=== PATIENT | female | born 1945 | race Caucasian/White ===

== ENCOUNTER 2016-07-17 07:57 | Day surgery (SDC) | payer MEDICARE ==
[2016-07-17] MEDS ORDERED: ALPRAZolam 0.25 MG TAB PO ONE (08:23)
[2016-07-17 08:31] VITALS: TEMP 98.1
[2016-07-17 09:03] LABS: Mean Platelet Volume 6.8
[2016-07-17 09:10] LABS: INR 1.1 (<1.1); Prothrombin Time 10.8 sec (9.0-12.0)
[2016-07-17 10:09] VITALS: BP 121/73; PULSE 77; RESP 22
--- NOTE | 2016-07-17 10:19 | XR ---
EXAMINATION TYPE: XR chest 1V DATE OF EXAM: 07/17/2016 10:13 AM COMPARISON: NONE HISTORY: Postthoracentesis TECHNIQUE: Single frontal view of the chest is obtained. FINDINGS: There is no sizable pneumothorax. Tiny residual left pleural effusion seen. Small right-si ded pleural effusion. Linear irregular density right apex stable. Arthropathy of the shoulders and postsurgical change involving the right axilla. IMPRESSION: 1. No pneumothorax post procedure.
--- NOTE | 2016-07-17 14:03 | US ---
EXAMINATION TYPE: US thoracentesis DATE OF EXAM: 07/17/2016 10:05 AM COMPARISON: NONE HISTORY: Pleural effusion. FINDINGS: Maximal barrier technique was utilized. The skin overlying a suitable pocket of fluid was localized and the overlying skin prepped and draped. Lidocaine was used for local anesthesia. Ultras ound was used with sterile technique. A 5 Czech catheter over a guide needle was advanced into the pleural fluid collection using ultrasound guidance and the catheter advanced, needle removed. Approx imately 1 liter(s) of serous fluid was removed. Catheter was withdrawn and hemostasis achieved. The re is no immediate complication. The patient discharged in stable condition without complication. IMPRESSION: STATUS POST ULTRASOUND GUIDED THORACENTESIS, POST PROCEDURE CHEST X-RAY PENDING. THIS [place] OCEDURE WAS PERFORMED BY THE UNDERSIGNED.
== END 2016-07-17 10:35 | disposition home or self-care (01) ==
LOC: RADPROMAIN 07:57
PROVIDERS: ATTEND Internal Medicine Hematology & Oncology
DX: J90 Pleural effusion, not elsewhere classified (principal)
CPT/HCPCS: 32555; 71010; 85049; 85610

== ENCOUNTER 2016-07-25 09:50 | Day surgery (SDC) | payer MEDICARE ==
[2016-07-25 10:41] LABS: Mean Platelet Volume 7.2
[2016-07-25 10:42] LABS: Prothrombin Time 10.3 sec (9.0-12.0)
[2016-07-25 11:02] VITALS: RESP 18
--- NOTE | 2016-07-25 12:26 | XR ---
EXAMINATION TYPE: XR chest 1V portable DATE OF EXAM: 07/25/2016 12:21 PM COMPARISON: Prior chest x-ray July 2016 HISTORY: Pleural effusion, status post thoracentesis TECHNIQUE: Single frontal view of the chest is obtained. FINDINGS: There is improvement in patient's right-sided pleural effusion. Some increasing pleural fl uid noted on the left. No evident pneumothorax. No other significant interval change. IMPRESSION: No evident complication status post right thoracentesis.
[2016-07-25 12:27] VITALS: BP 112/65; PULSE 97
--- NOTE | 2016-07-25 13:12 | US ---
EXAMINATION TYPE: US thoracentesis DATE OF EXAM: 07/25/2016 12:14 PM HISTORY: Pleural effusion. FINDINGS: Maximal barrier technique was utilized. The skin overlying a suitable pocket of fluid was localized and the overlying skin prepped and draped. Lidocaine was used for local anesthesia. Ultras ound was used with sterile technique. A 5 Bulgarian catheter over a guide needle was advanced into the pleural fluid collection using ultrasound guidance and the catheter advanced, needle removed. Approx imately 1.125 liter(s) of serous fluid was removed. Catheter was withdrawn and hemostasis achieved. There is no immediate complication. The patient discharged in stable condition without complication . IMPRESSION: STATUS POST ULTRASOUND GUIDED THORACENTESIS, POST PROCEDURE CHEST X-RAY PENDING. THIS [place] OCEDURE WAS PERFORMED BY THE UNDERSIGNED.
== END 2016-07-25 12:30 | disposition home or self-care (01) ==
LOC: RADPROMAIN 09:50
PROVIDERS: ATTEND Internal Medicine Hematology & Oncology
DX: J90 Pleural effusion, not elsewhere classified (principal)
CPT/HCPCS: 32555; 36415; 71010; 85049; 85610

== ENCOUNTER 2016-08-08 08:47 | Day surgery (SDC) | payer MEDICARE ==
[2016-08-08 09:15] VITALS: TEMP 98
[2016-08-08 09:31] LABS: INR 1.1 (<1.1); Prothrombin Time 10.9 sec (9.0-12.0)
--- NOTE | 2016-08-08 10:45 | XR ---
EXAMINATION TYPE: XR chest 1V DATE OF EXAM: 08/08/2016 10:40 AM COMPARISON: NONE INDICATION: Postthoracentesis TECHNIQUE: Single frontal view of the chest is obtained. FINDINGS: Heart size is indistinct. There is a small left pleural effusion. Some infiltrate is adjacent which c ould related atelectasis. Developing pneumonia is not excluded. Findings may have some improvement fr om prior study. There is chronic scarring in the right lateral apex. Surgical clips in the right axillary region. Sma ll right pleural effusion is present. The pulmonary vasculature is normal. IMPRESSION: 1. Small left and minimal right pleural effusion. 2. Improving left lower lobe infiltrate. Follow-up can be performed as clinically indicated.
[2016-08-08 11:04] VITALS: BP 121/71; PULSE 70; RESP 16
[2016-08-08 11:31] LABS: Anisocytosis Slight; Basophils # (A) 0.1 k/uL (0-0.2); Basophils % (A) 3 %; CH 33.2; CHCM 33.7; Eosinophils # (A) 0.1 k/uL (0-0.7); Eosinophils % (A) 2 %; HCT 33.4 % (34.0-46.0); Luc # (Auto) 0.08; Luc % (Auto) 4; Lymphocytes # (A) 0.6 k/uL (1.0-4.8); Lymphocytes % (A) 27 %; MCH 32.5 pg (25.0-35.0); MCHC 32.8 g/dL (31.0-37.0); Macrocytosis Moderate; Mean Platelet Volume 8.3; Monocytes # (A) 0.1 k/uL (0-1.0); Monocytes % (A) 5 %; Neutrophils # (A) 1.3 k/uL (1.3-7.7); Neutrophils % (A) 59 %; RBC 3.38 m/uL (3.80-5.40); RDW 18.9 % (11.5-15.5); WBC 2.3 k/uL (3.8-10.6); WBC (Perox) 2.27
--- NOTE | 2016-08-08 11:59 | US ---
EXAMINATION TYPE: US thoracentesis DATE OF EXAM: 08/08/2016 10:36 AM COMPARISON: NONE HISTORY: Pleural effusion. FINDINGS: Maximal barrier technique was utilized. The skin overlying a suitable pocket of fluid was localized and the overlying skin prepped and draped. Lidocaine was used for local anesthesia. Ultras ound was used with sterile technique. A 5 [place] catheter over guide needle was advanced into the pl eural fluid collection using ultrasound guidance and the catheter advanced,. Approximately 1.2 liter (s) of serous fluid was removed. Catheter was withdrawn and hemostasis achieved. There is no immedi ate complication. The patient discharged in stable condition without complication. IMPRESSION: STATUS POST ULTRASOUND GUIDED THORACENTESIS, POST PROCEDURE CHEST X-RAY PENDING. THIS [place] OCEDURE WAS PERFORMED BY THE UNDERSIGNED.
== END 2016-08-08 11:00 | disposition home or self-care (01) ==
LOC: RADPROMAIN 08:47
PROVIDERS: ATTEND Internal Medicine Hematology & Oncology
DX: J90 Pleural effusion, not elsewhere classified (principal)
CPT/HCPCS: 32555; 36415; 71010; 85025; 85049; 85610

== ENCOUNTER 2016-08-14 07:50 | Day surgery (SDC) | payer MEDICARE ==
[2016-08-14 08:46] VITALS: RESP 14; TEMP 97.6
[2016-08-14 08:54] LABS: Anisocytosis Slight; Basophils % (A) 2 %; CH 33.8; CHCM 33.4; Eosinophils % (A) 2 %; HCT 34.8 % (34.0-46.0); HGB 11.5 gm/dL (11.4-16.0); INR 1.1 (<1.1); Luc # (Auto) 0.05; Luc % (Auto) 3; Lymphocytes # (A) 0.6 k/uL (1.0-4.8); Lymphocytes % (A) 32 %; MCH 33.4 pg (25.0-35.0); MCHC 32.9 g/dL (31.0-37.0); MCV 101.6 fL (80.0-100.0); Macrocytosis Moderate; Mean Platelet Volume 7.5; Monocytes # (A) 0.1 k/uL (0-1.0); Monocytes % (A) 5 %; Neutrophils % (A) 57 %; Prothrombin Time 10.6 sec (9.0-12.0); RBC 3.43 m/uL (3.80-5.40); RDW 18.3 % (11.5-15.5); WBC (Perox) 1.98
[2016-08-14 08:56] LABS: WBC 1.8 k/uL (3.8-10.6)
[2016-08-14 09:46] VITALS: BP 119/62; PULSE 63
--- NOTE | 2016-08-14 10:04 | XR ---
EXAMINATION TYPE: XR chest 1V DATE OF EXAM: 08/14/2016 9:55 AM COMPARISON: Chest x-ray August 08, 2016 HISTORY: Left lung thoracentesis TECHNIQUE: Single frontal view of the chest is obtained. FINDINGS: Underlying emphysematous changes redemonstrated. Improved aeration left lung base is seen after left-sided thoracentesis. There is persistent small right pleural effusion. There is persistent right apical scarring. The cardiac silhouette size is better evaluated and enlarged. The osseous s tructures are demineralized. Right axillary surgical clips are redemonstrated. IMPRESSION: No evidence of sizable pneumothorax after left-sided thoracentesis. There is chronic emp hysematous change and cardiomegaly with persistent small right greater than left pleural effusions an d patchy left basilar atelectasis now present.
--- NOTE | 2016-08-14 10:32 | US ---
EXAMINATION TYPE: US thoracentesis DATE OF EXAM: 08/14/2016 9:54 AM COMPARISON: NONE HISTORY: Pleural effusion. FINDINGS: Maximal barrier technique was utilized. The skin overlying a suitable pocket of fluid was localized and the overlying skin prepped and draped. Lidocaine was used for local anesthesia. Ultras ound was used with sterile technique. A 6 German catheter over guide needle was advanced into the pl eural fluid collection using ultrasound guidance and catheter advanced, needle removed. Approximatel y 1 liter(s) of serous fluid was removed. Catheter was withdrawn and hemostasis achieved. There is no immediate complication. The patient discharged in stable condition without complication. IMPRESSION: STATUS POST ULTRASOUND GUIDED THORACENTESIS, POST PROCEDURE CHEST X-RAY PENDING. THIS [place] OCEDURE WAS PERFORMED BY THE UNDERSIGNED.
== END 2016-08-14 10:05 | disposition home or self-care (01) ==
LOC: RADPROMAIN 07:50
PROVIDERS: ATTEND Internal Medicine Hematology & Oncology
DX: J90 Pleural effusion, not elsewhere classified (principal); J43.9 Emphysema, unspecified; I51.7 Cardiomegaly; J98.11 Atelectasis
CPT/HCPCS: 32555; 71010; 85025; 85610

== ENCOUNTER 2016-08-28 08:04 | Day surgery (SDC) | payer MEDICARE ==
[2016-08-28 08:28] VITALS: RESP 20; TEMP 97.8
[2016-08-28 08:32] LABS: Mean Platelet Volume 7.7
[2016-08-28 08:37] LABS: INR 1.1 (<1.1); Prothrombin Time 10.6 sec (9.0-12.0)
[2016-08-28 10:13] VITALS: BP 127/70; PULSE 70
--- NOTE | 2016-08-28 10:45 | US ---
EXAMINATION TYPE: US thoracentesis DATE OF EXAM: 08/28/2016 10:06 AM COMPARISON: NONE HISTORY: Pleural effusion. FINDINGS: Maximal barrier technique was utilized. The skin overlying a suitable pocket of fluid was localized and the overlying skin prepped and draped. Lidocaine was used for local anesthesia. Ultras ound was used with sterile technique. A 5 Bulgarian catheter over guide needle was advanced into the pl eural fluid collection using ultrasound guidance and the catheter advanced, needle removed. Approxim ately 1.1 liter(s) of serous fluid was removed. Catheter was withdrawn and hemostasis achieved. The re is no immediate complication. The patient discharged in stable condition without complication. IMPRESSION: STATUS POST ULTRASOUND GUIDED THORACENTESIS, POST PROCEDURE CHEST X-RAY PENDING. THIS [place] OCEDURE WAS PERFORMED BY THE UNDERSIGNED.
--- NOTE | 2016-08-28 11:34 | XR ---
EXAMINATION TYPE: XR chest 1V DATE OF EXAM: 08/28/2016 10:09 AM COMPARISON: Prior chest x-ray one August 2016 HISTORY: Status post thoracentesis TECHNIQUE: Single frontal view of the chest is obtained. FINDINGS: There is interval improvement in aeration within the right lung. No evident pneumothorax. Patchy basilar density present on the left with obscured left hemidiaphragm compatible with recurrent pleural effusion. Cardiomediastinal silhouette. Vascularity and sangeeta not significantly changed. Surg ical clips present in the right axilla. Apical scarring again noted on the right. IMPRESSION: No evident complication status post thoracentesis.
== END 2016-08-28 10:20 | disposition home or self-care (01) ==
LOC: RADPROMAIN 08:04
PROVIDERS: ATTEND Internal Medicine Hematology & Oncology
DX: J90 Pleural effusion, not elsewhere classified (principal)
CPT/HCPCS: 32555; 36415; 71010; 85049; 85610

== ENCOUNTER 2016-10-22 07:54 | Day surgery (SDC) | payer MEDICARE ==
[2016-10-22 08:20] VITALS: TEMP 97.6
[2016-10-22 08:46] LABS: Mean Platelet Volume 7.2
[2016-10-22 08:52] LABS: INR 1.1 (<1.1); Prothrombin Time 11.1 sec (9.0-12.0)
--- NOTE | 2016-10-22 09:54 | XR ---
EXAMINATION TYPE: XR chest 1V DATE OF EXAM: 10/22/2016 9:49 AM HISTORY: Shortness of breath. Status post right-sided thoracentesis. COMPARISON: 08/28/2016 TECHNIQUE: Single view of the chest is submitted. FINDINGS: No evidence for right-sided pneumothorax. Demonstrated are scattered senescent parenchymal change. Persistent small basilar effusions and probable underlying atelectasis. Parenchymal scarring right up per lobe. The heart is stable. Hilar and mediastinal structures are within normal limits. Degenerative changes are seen of the dorsal spine. IMPRESSION: 1. No evidence for pneumothorax.
[2016-10-22 10:30] VITALS: BP 131/69; PULSE 73; RESP 16
--- NOTE | 2016-10-22 13:42 | US ---
EXAMINATION TYPE: US thoracentesis DATE OF EXAM: 10/22/2016 9:35 AM COMPARISON: NONE HISTORY: Pleural effusion. FINDINGS: Maximal barrier technique was utilized. The skin overlying a suitable pocket of fluid was localized and the overlying skin prepped and draped. Lidocaine was used for local anesthesia. Ultras ound was used with sterile technique. A 5 lithuanian catheter advanced over guide needle was advanced in to the pleural fluid collection using ultrasound guidance and the catheter advanced, needle removed. Approximately 1 liter(s) of serous fluid was removed. Catheter was withdrawn and hemostasis achieve d. There is no immediate complication. The patient discharged in stable condition without complicat ion. IMPRESSION: STATUS POST ULTRASOUND GUIDED THORACENTESIS, POST PROCEDURE CHEST X-RAY PENDING. THIS [place] OCEDURE WAS PERFORMED BY THE UNDERSIGNED.
== END 2016-10-22 10:15 | disposition home or self-care (01) ==
LOC: RADPROMAIN 07:54
PROVIDERS: ATTEND Internal Medicine Hematology & Oncology
DX: J90 Pleural effusion, not elsewhere classified (principal)
CPT/HCPCS: 32555; 36415; 71010; 85049; 85610

== ENCOUNTER → 2016-11-30 | Outpatient (CLI) | payer MEDICARE | END | disposition home or self-care (01) | LOC: RADPETMAIN 12:49 | PROVIDERS: ATTEND Internal Medicine Hematology & Oncology | DX: Z53.9 Procedure and treatment not carried out, unspecified reason (principal) ==

== ENCOUNTER → 2016-12-21 | Outpatient (CLI) | payer MEDICARE ==
--- NOTE | 2016-12-21 09:47 | PE ---
EXAMINATION TYPE: PET CT fusion whole body DATE OF EXAM: 12/21/2016 CLINICAL HISTORY: Right-sided breast cancer subsequent study after completing treatment a few years a go per patient.. TECHNIQUE: Following the intravenous administration of 13.92 mCi of F-18 FDG, whole body images are performed from the skull base to the midthigh. Images are reviewed on the computer in the coronal, axial, and sagittal planes. Reconstructed rotating images are created on independent workstation and reviewed on the computer. A non-contrast CT is performed in conjunction with the PET scan. COMPARISON: PET/CT May 04, 2016. FINDINGS: SKULL BASE AND NECK: No new suspicious hypermetabolic uptake is seen in the neck. Mild symmetric upt ariane at level of vocal cords is felt to reflect product of phonation. Mild symmetric uptake anterior l ower cervical muscles may reflect postinflammatory change. CHEST, MEDIASTINUM, AND HILAR REGION: No new suspicious hypermetabolic uptake is seen in the thorax. ABDOMEN AND PELVIS: No suspicious hypermetabolic uptake is seen in the abdomen or pelvis. Normal excr etion is present. OSSEOUS STRUCTURES: There is redemonstration of sclerotic focus right L1 vertebra and T6 lamina. Ther e are additional few smaller sclerotic foci redemonstrated, for reference left sacral lesion on axial image 179, right L4 superior vertebral body lesion on axial image 153, L3 vertebral body lesion late rally on axial image 146,, left L3 lesion on axial image 142, and left L2 lesion on 132. No significa nt change or abnormal hypermetabolic uptake is present. Mild increase uptake at level of greater troc hanters bilaterally could reflect trochanteric bursitis. OTHER CT: There are persistent moderate to large size bilateral pleural effusions with associated com pressive atelectasis in both lung bases. There are persistent scattered areas of scarring and/or atel ectasis bilaterally. No significant change from prior study is seen. Right-sided mastectomy changes redemonstrated. Right axillary surgical clips are again seen. Coronary artery calcification is present which is noted marker for coronary artery disease. There is redemonstration of simple appearing 3.7 cm cyst upper pole level right kidney. Additional 2. 5 cm simple appearing cyst laterally mid to lower pole level left kidney is redemonstrated. There are scattered diverticula in the colon most pronounced at sigmoid colon level redemonstrated. There is multilevel facet arthropathy in the lower lumbar spine redemonstrated. There is mild calcified atherosclerotic change of aorta extending into pelvic branch vessels redemons trated. IMPRESSION: 1. Suspect treated stable osseous metastatic disease. No new hypermetabolic uptake is present to sugg est recurrent malignancy. 2. Persistent moderate to large bilateral pleural effusions.
== END | disposition home or self-care (01) ==
LOC: RADPETMAIN 07:29
PROVIDERS: ATTEND Internal Medicine Hematology & Oncology
DX: J90 Pleural effusion, not elsewhere classified (principal); C50.919 Malignant neoplasm of unspecified site of unspecified female breast
CPT/HCPCS: 78816; A9552

== ENCOUNTER 2017-02-04 08:58 | Day surgery (SDC) | payer MEDICARE ==
[2017-02-04 09:19] VITALS: RESP 20; TEMP 97.9
[2017-02-04 09:37] LABS: Prothrombin Time 10.6 sec (9.0-12.0)
[2017-02-04 09:40] LABS: Mean Platelet Volume 7.7
[2017-02-04 11:09] VITALS: BP 140/70; PULSE 60
--- NOTE | 2017-02-04 11:14 | XR ---
EXAMINATION TYPE: XR chest 1V DATE OF EXAM: 02/04/2017 HISTORY: Status post thoracentesis on the right COMPARISON: 10/22/16 TECHNIQUE: Single view of the chest is submitted. FINDINGS: Persistent small basilar effusions and left basilar patchy density. No evidence for sizable pneumotho rax on the right. Demonstrated are scattered senescent parenchymal change. The heart is stable. Hilar and mediastinal structures are within normal limits. Degenerative changes are seen of the dorsal spine. IMPRESSION: 1. Persistent small basilar effusions and left basilar patchy density. No evidence for sizable pneum othorax on the right.
--- NOTE | 2017-02-04 12:44 | US ---
EXAMINATION TYPE: US thoracentesis DATE OF EXAM: 02/04/2017 COMPARISON: NONE HISTORY: Pleural effusion. FINDINGS: Maximal barrier technique was utilized. The skin overlying a suitable pocket of fluid was localized and the overlying skin prepped and draped. Lidocaine was used for local anesthesia. Ultras ound was used with sterile technique. A 5 German catheter over guide needle was advanced into the pl eural fluid collection using ultrasound guidance and the needle was removed, catheter advanced. Appr oximately 1.1 liter(s) of serous fluid was removed. Catheter was withdrawn and hemostasis achieved. There is no immediate complication. The patient discharged in stable condition without complication . IMPRESSION: STATUS POST ULTRASOUND GUIDED THORACENTESIS, POST PROCEDURE CHEST X-RAY PENDING. THIS [place] OCEDURE WAS PERFORMED BY THE UNDERSIGNED.
== END 2017-02-04 11:15 | disposition home or self-care (01) ==
LOC: RADPROMAIN 08:58
PROVIDERS: ATTEND Internal Medicine Hematology & Oncology
DX: J90 Pleural effusion, not elsewhere classified (principal)
CPT/HCPCS: 32555; 36415; 71010; 85049; 85610

== ENCOUNTER → 2018-06-20 | Outpatient (CLI) | payer MEDICARE ==
--- NOTE | 2018-06-23 15:30 | PE ---
Nuclear medicine PET/CT HISTORY: Breast carcinoma, subsequent Patient received 9.8 mCi F-18 FDG intravenously in delayed scanning was performed from the skull base to the mid thighs. Localization and attenuation correction CT scan was performed. Correlation to prior nuclear medicine PET/CT 06/28/2017 Neck and chest: Within the left breast there is a soft tissue focus with hypermetabolic uptake which is developed in the interval, SUV is 3.3. Patient is post right mastectomy. Bilateral pleural effusio ns are present, the right effusion is somewhat smaller than on prior. Uptake along the distal esophag us may be physiologic, SUV 3.9. No evident cervical, supraclavicular, mediastinal, axillary, or hilar adenopathy. Coronary artery calcifications are present. Abdomen pelvis: Cortical cysts again noted associated with the kidneys of the upper poles, bilaterall y within the left kidney. There is no retroperitoneal adenopathy or ascites. Liver shows no mass. [place] kate and adnexal structures within normal limits. No pelvic adenopathy or free fluid. Osseous structures: Within the sacrum there is a sclerotic focus in the midline which shows hypermeta bolic uptake, SUV is 3.6. Sclerotic focus is present in the proximal left femur without associated hy permetabolic uptake. Somewhat more well-defined, proximal right femur also shows a similar focus. Within the T12 vertebral body sclerotic focus is again seen, no associated hypermetabolic uptake. Probable physiologic uptake at the pectoralis musculature on the right. Impression: Hypermetabolic uptake within the sacrum is an interval finding. Suspicious activity withi n left breast mass. Additional findings above.
== END ==
LOC: RADPETMAIN 08:21
PROVIDERS: ATTEND Internal Medicine Hematology & Oncology
DX: C50.111 Malignant neoplasm of central portion of right female breast (principal)
CPT/HCPCS: 78815; A9552

== ENCOUNTER → 2018-07-22 | Outpatient (CLI) | payer MEDICARE ==
--- NOTE | 2018-07-28 16:24 | MM ---
Reason for exam: history of breast cancer, mastectomy. Last mammogram was performed 2 years and 9 months ago. History: Patient is postmenopausal, has history of high-risk lesion on a previous biopsy at age 70, has history of breast cancer at age 63, and had first child at age 30. Family history of breast cancer in sister at age 40. Benign MG pre op needle loc LT of the left breast, November 10, 2015. High risk US biopsy breast VAD LT of the left breast, October 09, 2015. Malignant ultrasound-guided core biopsy of the right breast, 2008. Mastectomy of the right breast, 2008. Chemotherapy, 2008. Radiation therapy, 2008. Taking antineoplastic for 1 year. Physical Findings: Nurse Summary: 1 x 1.5 cm fixation mass felt at the 12 o'clock position left breast. MG 3D Diag Mammo W/Cad LT CC, MLO, and LM view(s) were taken of the left breast. Prior study comparison: October 09, 2015, left breast MG diagnostic mammo LT wo CAD. September 11, 2015, left breast MG 3d diag mammo w/cad LT. The breast tissue is heterogeneously dense. This may lower the sensitivity of mammography. There is a 1.3 cm bilobed mass in the left upper outer quadrant middle depth with associated 1.7 cm of regional pleomorphic calcifications. These results were verbally communicated with the patient and result sheet given to the patient on 07/22/18. ASSESSMENT: Suspicious, BI-RAD 4 RECOMMENDATION: Ultrasound and ultrasound core biopsy of the left breast.
--- NOTE | 2018-08-03 07:50 | USB ---
Reason for exam: history of breast cancer, mastectomy. History: Patient is postmenopausal, has history of high-risk lesion on a previous biopsy at age 70, has history of breast cancer at age 63, and had first child at age 30. Family history of breast cancer in sister at age 40. Benign MG pre op needle loc LT of the left breast, November 10, 2015. High risk US biopsy breast VAD LT of the left breast, October 09, 2015. Malignant ultrasound-guided core biopsy of the right breast, 2008. Mastectomy of the right breast, 2008. Chemotherapy, 2008. Radiation therapy, 2008. Taking antineoplastic for 1 year. Physical Findings: Nurse Summary: A 1 x 1.5 cm dominant mass at 12 o'clock left breast. US Breast LT Left complete breast ultrasound includes all four quadrants, the retroareolar region and axilla. Finding demonstrates a 2.3 x 1.6 x 1.1 cm irregular shaped solid bilobed highly suspicious lesion at 12 o'clock. No suspicious left axillary adenopathy. These results were verbally communicated with the patient and result sheet given to the patient on 07/22/18. ASSESSMENT: Highly suggestive of malignancy, BI-RAD 5 RECOMMENDATION: Ultrasound core biopsy of the left breast. Called Dr Benavides with mammographic findings and has scheduled an appointment for the patient for 08/06/18 at 11:00am with Dr. Burnett for biopsy results. Left ultrasound core biopsy is scheduled for 07/29/18 at 12:20pm. PRELIMINARY REPORT CALLED AND FAXED TO DR. BURNETT ON 07/22/18.
== END | disposition home or self-care (01) ==
LOC: RADMAMWWP 13:18
PROVIDERS: ATTEND Internal Medicine Hematology & Oncology
DX: R93.89 Abnormal findings on diagnostic imaging of other specified body structures (principal); Z85.3 Personal history of malignant neoplasm of breast; Z90.11 Acquired absence of right breast and nipple
CPT/HCPCS: 77065; 76641; G0279; 77061

== ENCOUNTER → 2018-07-29 | Day surgery (SDC) | payer MEDICARE ==
[2018-07-29 12:32] VITALS: RESP 12
[2018-07-29 14:00] VITALS: BP 130/75; PULSE 75; TEMP 98.7
--- NOTE | 2018-07-29 16:31 | MM ---
EXAMINATION TYPE: US biopsy breast VAD LT DATE OF EXAM: 07/29/2018 CLINICAL HISTORY: R92.8 Abnormal Mammogram. TECHNIQUE: Ultrasound guided core biopsy of left breast. COMPARISON: 07/22/2018 FINDINGS: The procedure of ultrasound guided core biopsy was explained to the patient. Benefits, alt ernatives, and risks were discussed. An informed consent was then obtained. Timeout was performed. The patient was placed in supine positioning for imaging and for the procedure. Skin was cleansed wi th Betadine. The overlying skin was prepped and draped in usual sterile fashion. Lidocaine buffered with bicarbonate was used as anesthetic into the skin and subcutaneous tissue up to area of concern i n the left breast. A walter was made with surgical scalpel. Under ultrasound guidance, a 12-gauge vacuum assisted biopsy gun device was used to obtain [address]. Following this, a biopsy clip was left in lesion. Discharge instructions were discussed with the patient. Good hemostasis was obtained with pressure. Mammogram for clip placement: Post procedure mammogram ordered by the physician. Surgical clip is adj acent to the suspected abnormality. The patient tolerated the procedure well without any immediate complication. The patient was kept in the radiology department for short stay after the procedure and then discharged home in stable condi tion. IMPRESSION: 1. Successful ultrasound-guided core biopsy breast. Recommendations: 1. Recommendations are pending pathology results.
== END ==
LOC: RADUSWWP 11:44
PROVIDERS: ATTEND Surgery
DX: N60.32 Fibrosclerosis of left breast (principal); N60.02 Solitary cyst of left breast; Z87.898 Personal history of other specified conditions
CPT/HCPCS: 77065; 19083; A4648; J2001; 88305

== ENCOUNTER → 2019-03-13 | Outpatient (CLI) | payer MEDICARE ==
--- NOTE | 2019-03-15 08:59 | PE ---
EXAMINATION TYPE: PET CT fusion skull to thigh DATE OF EXAM: 03/13/2019 COMPARISON: NONE HISTORY: Right breast cancer treated with chemotherapy and radiation in 2009 as well as surgery in 20 09 with right mastectomy. TECHNIQUE: Following the intravenous administration of 13.26 mCi of F-18 FDG, whole body images are performed from the skull base to the midthigh. Images are reviewed on the computer in the coronal, a xial, and sagittal planes. Reconstructed rotating images are created on independent workstation and reviewed on the computer. A localization and attenuation correction CT is performed in conjunction with the PET scan. SCAN: Subsequent treatment strategy FINDINGS: Thoracic background: 1.52 Abdominal background: 2.99 SKULL BASE AND NECK: No suspicious hypermetabolic activity CHEST, MEDIASTINUM, AND HILAR REGION: The previously seen hypermetabolic activity within the left hailey ast had a prior SUV of 3.3. This has a current SUV of 2.9 with the appearance of a biopsy marker in i ts inferior margin. This measures 1.6 cm and is located at approximately the 12:00 position. Right pe ctoralis uptake is similar with a maximum SUV of 2.9 and is elongated. Although chest wall invasion i s possible myositis is more likely. Right mastectomy and right axillary node dissection are noted. Pl eural effusions are hypometabolic. No new mediastinal adenopathy. Some probable scarring along the la teral right upper lobe with a maximum SUV of 1.87. ABDOMEN AND PELVIS: Uptake within the distal esophagus that was presumably physiologic had an SUV of 3.9 on the prior. This has a current maximum SUV of 3.1 there is also hypermetabolic uptake in the ga stric antrum having a maximum SUV of 3.5. OSSEOUS STRUCTURES: Sacral activity of 3.6 on the prior PET/CT now has an SUV of 3.35. There is assoc iated sclerosis of S1. Sclerotic focus within the left femur is presumed to represent a bone island a s it is continued to be hypometabolic. Similar-appearing right femur lesion. T12 vertebral body scler otic focus is also hypometabolic. OTHER CT: Cortical renal cysts are again noted. Bilateral pleural effusions. There are bilateral pleu ral effusions, right greater than left that are overall moderate. Moderate degenerative changes of th e spine. Heart is enlarged. Mild emphysematous changes along with multifocal pleural parenchymal scar ring. Severe coronary calcifications. Small hiatal hernia. Very trace pericardial effusion. Bandlike scarring at the right lung base. Punctate calculus within the gallbladder fundus. Stomach is incomple tely distended and gastric wall thickening may be on the basis of nondistention. Small bowel feces si gn of the terminal ileum relates to either incompetent ileocecal valve or increased transit time/mild ileus. No evidence of obstruction. Scattered colonic diverticula are seen. IMPRESSION: 1. The left breast mass near the 12:00 position measuring 1.6 cm remains highly concerning for neopla sm despite prior biopsy. The biopsy marker is noted to be at the inferior aspect of the mass and jesusita mmendation again is for rebiopsy of the more cranial vascular portion of the mass. This was noted to be highly suspicious on the prior ultrasound of 07/22/2018. If the patient elects to forego rebiopsy chang rgical excision would be recommended. 2. Persistent uptake along the right pectoralis major musculature that is elongated and may represent posttreatment change or myositis with less likely consideration of recurrence. Continued surveillanc e is recommended. 3. Persistent hypermetabolic activity in the sacrum most compatible with either focal osseous metasta sis. 4. Redemonstration of pleural effusions and probable scarring in the right lung apex.
== END | disposition home or self-care (01) ==
LOC: RADPETMAIN 09:41
PROVIDERS: ATTEND Internal Medicine Hematology & Oncology
DX: C50.111 Malignant neoplasm of central portion of right female breast (principal); J90 Pleural effusion, not elsewhere classified
CPT/HCPCS: 78815; A9552

== ENCOUNTER → 2019-07-29 | Outpatient (CLI) | payer MEDICARE ==
--- NOTE | 2019-07-29 08:40 | MM ---
Reason for exam: additional evaluation requested from prior study. Last mammogram was performed 1 year ago. History: Patient is postmenopausal, has history of high-risk lesion on a previous biopsy at age 70, has history of breast cancer at age 63, and had first child at age 30. Family history of breast cancer in sister at age 40. Benign US biopsy breast VAD LT of the left breast, July 29, 2018. Benign MG pre op needle loc LT of the left breast, November 10, 2015. High risk US biopsy breast VAD LT of the left breast, October 09, 2015. Malignant ultrasound-guided core biopsy of the right breast, 2008. Mastectomy of the right breast, 2008. Chemotherapy, 2008. Radiation therapy, 2008. Taking antineoplastic for 1 year. Physical Findings: Nurse Summary: 1.5cm nodule in the left breast at 12 o'clock (nurse mj). MG 3D Diag Mammo W/Cad LT CC and MLO view(s) were taken of the left breast. Prior study comparison: July 29, 2018, left breast MG diagnostic mammo LT wo CAD. July 22, 2018, left breast MG 3d diag mammo w/cad LT. The breast tissue is heterogeneously dense. This may lower the sensitivity of mammography. The known left highly suspicious 12 o'clock mass at middle depth has grown from 1.1 x 1.1cm on the prior mammogram to 1.7 x 1.7cm on the current exam. Although there is an adjacent biopsy marker the benign results were discordant. This was also suspicious on PET/CT. Excision again recommended. Adjacent 7mm mass appears contiguous. These results were verbally communicated with the patient and result sheet given to the patient on 07/29/19. ASSESSMENT: Highly suggestive of malignancy, BI-RAD 5 RECOMMENDATION: Localization and excision of the left breast. Called office with mammographic findings and has scheduled an appointment for the patient for 07/29/19 at 9:[address] Benavides. PRELIMINARY REPORT CALLED AND FAXED TO DR. BENAVIDES ON 07/29/19.
== END | disposition home or self-care (01) ==
LOC: RADMAMWWP 06:50
PROVIDERS: ATTEND Internal Medicine Hematology & Oncology
DX: Z08 Encounter for follow-up examination after completed treatment for malignant neoplasm (principal); Z85.3 Personal history of malignant neoplasm of breast; Z90.11 Acquired absence of right breast and nipple
CPT/HCPCS: 77065; G0279; 77061

== ENCOUNTER → 2019-08-05 | Outpatient (CLI) | payer MEDICARE ==
[2019-08-05 18:40] LABS: T4, Free (Free Thyroxine) 1.3 ng/dL (0.80-1.80)
== END | disposition home or self-care (01) ==
LOC: LABWHC1 13:19
PROVIDERS: ATTEND Internal Medicine
DX: E03.9 Hypothyroidism, unspecified (principal); E55.9 Vitamin D deficiency, unspecified
CPT/HCPCS: 36415; 82306; 84439; 84443

== ENCOUNTER → 2019-08-05 | Day surgery (SDC) | payer MEDICARE ==
[2019-08-05 13:44] VITALS: BP 129/75; PULSE 71; RESP 16; TEMP 97.5
--- NOTE | 2019-08-05 15:08 | USB ---
EXAMINATION TYPE: US biopsy breast VAD LT DATE OF EXAM: 08/05/2019 CLINICAL HISTORY: Z85.3 History Br ca, R92.8 Abnormal Mammogram. TECHNIQUE: Ultrasound guided core biopsy of left breast. COMPARISON: NONE FINDINGS: The procedure of ultrasound guided core biopsy was explained to the patient. Benefits, alternatives, and risks were discussed. An informed consent was then obtained. The patient was placed in supine positioning for imaging and for the procedure. The overlying skin was prepped and draped in usual sterile fashion. Lidocaine was used as anesthetic into the skin and subcutaneous tissue up to area of concern in the left breast. Some deep anesthesia with lidocaine mixed with epinephrine was performed. Total 8 cc lidocaine instilled. Under ultrasound guidance, a 12-gauge vacuum assisted biopsy gun device was used to obtain 2 core samples. Following this, a biopsy clip was left in lesion. The patient tolerated the procedure well without any immediate complication. Postprocedure digital mammogram shows the biopsy clip in close proximity to the mass. The patient was kept in the radiology department for short stay after the procedure and then discharged home in stable condition. IMPRESSION: Successful, uncomplicated ultrasound guided core biopsy of area of concern in the left breast, full pathology results to follow. Pathology Results: High Risk LEFT BREAST, ULTRASOUND GUIDED CORE BIOPSY: Adenomyoepithelioma with central infarction. See note. Recommendation Surgical consult of the left breast. Typically benign however there are rare malignant cases that can metastasize and this mass is FDG avid on PET-CT and has re-occurred locally per pathology. Excision recommended. MTDD
--- NOTE | 2019-08-06 08:59 | MM ---
Reason for exam: additional evaluation requested from abnormal screening. Last mammogram was performed less than 1 month ago. History: Patient is postmenopausal, has history of high-risk lesion on a previous biopsy at age 70, has history of breast cancer at age 63, and had first child at age 30. Family history of breast cancer in sister at age 40. Benign US biopsy breast VAD LT of the left breast, July 29, 2018. Benign MG pre op needle loc LT of the left breast, November 10, 2015. High risk US biopsy breast VAD LT of the left breast, October 09, 2015. Malignant ultrasound-guided core biopsy of the right breast, 2008. Mastectomy of the right breast, 2008. Chemotherapy, 2008. Radiation therapy, 2008. Taking antineoplastic for 1 year. MG Diagnostic Mammo LT Wo CAD CC and MLO view(s) were taken of the left breast. Prior study comparison: July 29, 2019, left breast MG 3d diag mammo w/cad LT. July 29, 2018, left breast MG diagnostic mammo LT wo CAD. ASSESSMENT: Post procedure mammogram for marker placement RECOMMENDATION: Ultrasound of the left breast in 6 months. PENDING PATHOLOGY RESULTS.
== END ==
LOC: RADUSWWP 13:09
PROVIDERS: ATTEND Internal Medicine Hematology & Oncology
DX: D24.2 Benign neoplasm of left breast (principal); Z85.3 Personal history of malignant neoplasm of breast
CPT/HCPCS: 88305; 88342; 88341; 77065; 19083; A4648; J2001; 36415; 82306; 84439; 84443

== ENCOUNTER → 2019-09-02 | Outpatient (CLI) | payer MEDICARE ==
--- NOTE | 2019-09-02 15:32 | MR ---
EXAMINATION TYPE: MR brain wo/w con DATE OF EXAM: 09/02/2019 COMPARISON: 03/13/2019 PET/CT HISTORY: Breast cancer; dizziness; loss of balance TECHNIQUE: Multiplanar, multisequence images of the brain and brainstem is performed without and with IV contras t, utilizing 7 mL intravenous Gadavist . FINDINGS: Diffusion weighted images demonstrate no evidence of a recent infarct or other diffusion ab normality. Moderate generalized degenerative change. There is diffuse abnormal signal in the white ma tter compatible with remote microvascular ischemia. Abnormal signal noted in the tammy suggestive of remote ischemia. More confluent density in the right frontal lobe extending to the cortex also suggestive of remote ischemia. There is a heterogeneous marrow signal of the clivus. However, recent PET scan includes the region of interest and there is no abnormal uptake in this region. Midline structures demonstrate normal morphology. The craniocervical junction appears within normal limits. Post contrast images demonstrate no abnormal enhancement. The dural venous sinuses appear pa tent. Changes of chronic sinusitis noted. Nasal septal deviation noted. And the globes are intact. IMPRESSION: 1. Degenerative and extensive remote ischemic change with no evidence of enhancing mass to suggest me tastases. 2. Heterogeneous nonspecific signal within the clivus. Recent PET scan of 03/13/2019 did include this area of interest with no abnormal uptake to suggest metastases.
== END | disposition home or self-care (01) ==
LOC: RADMRIMAIN 13:48
PROVIDERS: ATTEND Internal Medicine Hematology & Oncology
DX: G31.89 Other specified degenerative diseases of nervous system (principal); I67.82 Cerebral ischemia; C50.111 Malignant neoplasm of central portion of right female breast
CPT/HCPCS: 70553; A9585

== ENCOUNTER → 2019-10-29 | Outpatient (CLI) | payer MEDICARE ==
--- NOTE | 2019-10-29 14:24 | PE ---
Nuclear medicine PET/CT HISTORY: Breast carcinoma, C 50.11, subsequent Patient received 12.0 mCi F-18 FDG intravenously in delayed scanning was performed from the skull bas e to the mid thighs. Localization and attenuation correction CT scan was performed. Correlation to prior nuclear medicine PET/CT 03/13/2019 neck and CHEST: Bilateral pleural effusions are present. There is associated atelectasis. There is a soft tissue mass present within the left breast at approximately the 12:00 position measuring approxi mately 2 cm in size and shows associated mild increased uptake as on prior exam. There is no evident axillary, supraclavicular, or mediastinal adenopathy. Dense coronary artery calcifications are presen t. No pericardial effusion. There is a small hiatal hernia. Apical pleural thickening is again noted, associated scarring in the right upper lobe. Patient is post right mastectomy. No evident lung mass. Surgical clips present in the right axilla. No evident lung mass. ABDOMEN: There is no evident liver mass or retroperitoneal adenopathy. No ascites. Exophytic cortical cyst present at the upper poles of the kidneys. Osseous structures show sclerotic foci consistent with metastasis within the spine including T6 simil ar to prior exam, T12, T10, T5, multiple punctate foci smaller in size and also within the sacrum, pr oximal left femur as on prior. Evidence of prior right frontal infarct noted within the brain. IMPRESSION: Findings are similar to prior exam. There is no significant interval change.
== END | disposition home or self-care (01) ==
LOC: RADPETMAIN 07:45
PROVIDERS: ATTEND Internal Medicine Hematology & Oncology
DX: C50.111 Malignant neoplasm of central portion of right female breast (principal)
CPT/HCPCS: 78815; A9552

== ENCOUNTER → 2020-01-20 | Outpatient (CLI) | payer MEDICARE ==
[2020-01-20 21:08] LABS: African American GFR (CKD) 42.5 (60.0-200.0); Albumin 3.7 g/dL (3.80-4.90); Albumin/Globulin Ratio 1.42 (1.60-3.17); Anion Gap 5.7 mmol/L (4.00-12.00); Calcium 9.2 mg/dL (8.7-10.3); Carbon Dioxide 32.3 mmol/L (21.6-31.8); Globulin 2.6 g/dL (1.6-3.3); Non-African American GFR(CKD) 36.7 (60.0-200.0); Potassium 4.4 mmol/L (3.5-5.5); Total Bilirubin 0.7 mg/dL (0.3-1.2); Total Protein 6.3 g/dL (6.2-8.2)
== END | disposition home or self-care (01) ==
LOC: LABWHC1 13:52
PROVIDERS: ATTEND Internal Medicine Interventional Cardiology
DX: I48.21 Permanent atrial fibrillation (principal)
CPT/HCPCS: 36415; 80053; 84443

== ENCOUNTER → 2020-04-28 | Outpatient (CLI) | payer MEDICARE ==
--- NOTE | 2020-04-30 14:10 | PE ---
Nuclear medicine PET/CT HISTORY: Right breast cancer, C 50.111, subsequent Patient received 9.1 mCi F-18 FDG intravenously in delayed scanning was performed from the skull base to the mid thighs. Localization and attenuation correction CT scan was performed. Correlation to prior exam nuclear medicine PET/CT 10/29/2019 Chest and neck: Soft tissue mass within the left breast shows hypermetabolic uptake. Patient is statu s post right mastectomy. There is no axillary, mediastinal, or hilar uptake present. Bilateral pleura l effusions are present as on prior. There are dense coronary artery calcifications present. No evide nt cervical or supraclavicular adenopathy. No evident lung mass. ABDOMEN: No evident liver mass. There is ascites present about the liver. Soft tissue masses are pres ent within the omentum with mild uptake. There is been interval development of left-sided hydronephro sis. Bilateral cortical cysts are again noted within the kidneys. At the level of the distal left ure ter I question some abnormal thickening of the urinary bladder. Difficult to exclude hypermetabolic u ptake at this level due to urine activity. No pelvic adenopathy. Extensive diverticular change noted in the sigmoid colon. Osseous structures show a similar pattern of abnormal uptake, there is uptake present within the sacr um, mild uptake in the T1 vertebral body to the right of midline, there is uptake again noted at T6, T10, T12 with multiple foci of sclerotic densities scattered throughout the spine, right seventh rib, left ilium, left proximal femur. IMPRESSION: New left-sided hydronephrosis, possible distal left ureteral obstruction, difficult to ex clude bladder mass at the level of the trigone. Omental caking is noted and has progressed compared t o prior exam. Metastatic disease to bone. Left breast mass. Postop changes.
== END | disposition home or self-care (01) ==
LOC: RADPETMAIN 10:07
PROVIDERS: ATTEND Internal Medicine Hematology & Oncology
DX: C79.51 Secondary malignant neoplasm of bone (principal); N13.30 Unspecified hydronephrosis; N63.20 Unspecified lump in the left breast, unspecified quadrant; C50.111 Malignant neoplasm of central portion of right female breast
CPT/HCPCS: 78815; A9552

== ENCOUNTER → 2020-06-16 | Outpatient (CLI) | payer MEDICARE ==
--- NOTE | 2020-06-16 12:23 | US ---
EXAMINATION TYPE: US abdomen complete DATE OF EXAM: 06/16/2020 COMPARISON: PET/CT April 28, 2020 CLINICAL HISTORY: R17 JAUNDICE. Jaundice. History of breast cancer. EXAM MEASUREMENTS: Liver Length: 15.8 cm Gallbladder Wall: .4 cm CBD: 1.2 cm Spleen: 9.3 cm Right Kidney: 11.0 x 3.7 x 4.0 cm Left Kidney: 10.8 x 4.5 x 3.2 cm Pancreas: Tail obscured by overlying bowel gas Liver: Dilated biliary system Gallbladder: Contracted thickened wall with pericholecystic fluid Evidence for sonographic Dorsey's sign: No CBD: Dilated Spleen: wnl Right Kidney: Cystic area seen upper pole 3.7 x 3.6 x 4.2 cm Left Kidney: Cystic area upper pole 2.4 x 1.9 x 2.1cm lower pole 2.7 x 2.6 x 2.7 cm. Upper IVC: wnl Abd Aorta: wnl The visualized liver shows new mild to moderate diffuse intrahepatic biliary dilatation. The intrahe patic portion of the IVC and visualized abdominal aorta are within normal limits. There is no eviden ce of shadowing mobile cholelithiasis. Contracted gallbladder with concentric wall thickening. The vi sualized portions of the pancreas are slightly heterogeneous. The spleen is unremarkable. Some corti surya thinning both kidneys with scattered simple-appearing thin-walled cysts. IMPRESSION: New mild to moderate biliary dilatation in patient with history of metastatic breast canc er raises concern for interval development of diffuse hepatic metastatic disease. Follow-up contrast- enhanced CT is advised.
== END | disposition home or self-care (01) ==
LOC: RADUSWWP 10:50
PROVIDERS: ATTEND Internal Medicine Hematology & Oncology
DX: C78.7 Secondary malignant neoplasm of liver and intrahepatic bile duct (principal); K83.8 Other specified diseases of biliary tract; Z85.3 Personal history of malignant neoplasm of breast
CPT/HCPCS: 76700

== ENCOUNTER 2020-06-23 11:05 | Day surgery (SDC) | payer MEDICARE ==
[~2020-06-23 11:05] MED LIST: LACTATED RINGERS 1,000 ML IV SCH
[2020-06-23] MEDS ORDERED: INDOMETHACIN 50MG SUPPOSITORY RECTAL ONE (11:46)
[2020-06-23] MEDS ORDERED: LEVOFLOXACIN 250MG-D5W PMX 250 MG in DEXTROSE/WATER 1 50ML.BAG IVPB STA (11:47)
[2020-06-23 11:59] VITALS: RESP 16; TEMP 98
[2020-06-23] MEDS ORDERED: LIDOCAINE 1% (10MG/ML) FOR IV START INTRADERMA ONE (12:18)
[2020-06-23 12:39] LABS: Anisocytosis Slight; HCT 28.4 % (34.0-46.0); HGB 9.5 gm/dL (11.4-16.0); Hypochromasia Slight; MCH 38.2 pg (25.0-35.0); MCHC 33.4 g/dL (31.0-37.0); MCV 114.5 fL (80.0-100.0); Macrocytosis Marked; Mean Platelet Volume 7.9; Platelet Count 254 k/uL (150-450); Poikilocytosis Slight; RBC 2.48 m/uL (3.80-5.40); WBC 5.1 k/uL (3.8-10.6)
[2020-06-23 12:52] LABS: Potassium 4.7 mmol/L (3.5-5.1)
[2020-06-23 12:57] LABS: Partial Thromboplastin Time 25.2 sec (22.0-30.0); Prothrombin Time 10.7 sec (9.0-12.0)
[2020-06-23] MEDS ORDERED: fentaNYL (PF) 50 MCG/ML 2 ML AMP ONE (13:13)
[2020-06-23] MEDS ORDERED: LIDOCAINE 1% INJ 10MG/ML (20 ML MDV) ONE (13:13)
[2020-06-23] MEDS ORDERED: MIDAZOLAM 2 MG/2 ML VIAL ONE (13:13)
[2020-06-23] MEDS ORDERED: PROPOFOL 10 MG/ML 20 ML VIAL IV ONE (13:13)
[2020-06-23] MEDS ORDERED: IOPAMIDOL-300 50ML BTL INJ ONE (13:34)
--- NOTE | 2020-06-23 14:18 | P.PCN ---
Date of Procedure: 06/23/20 Procedure(s) Performed: Brief history: Patient is a 75-year-old year-old pleasant lady scheduled for an ERCP as part of evaluation of painless obstructive jaundice. She has metastatic breast cancer and recently was noted to have elevated bilirubin up to 11 and alkaline phosphatase in the 1300s range. Ultrasound revealed dilated intra and extra-Hepatic biliary system. A PET scan done in April 2020 showed normal liver and mild ascites. She is scheduled for an ERCP for biliary drainage. Procedure performed: ERCP with unsuccessful cannulation of the common bile duct Preoperative diagnoses: obstructive jaundice/history of epigastric discomfort IV sedation per anesthesia: Procedure: After informed consent was obtained from the patient and after the risks benefits and complications including bleeding perforation and pancreatitis explained in detail the patient was brought into the endoscopy unit. The patient was placed in prone position and IV conscious sedation was administered by anesthesia under continuous monitoring. The Olympus side-viewing duodenoscope was then inserted into the mouth and esophagus intubated without any difficulty. The scope was gradually advanced into the stomach and duodenum. The major papilla was identified without any difficulty. initial cannulation resultedin case of the pancreatic duct that appeared entirely normal. Subsequently despite multiple attempts using the catheter and changing the guidewires and the sphincterotome I was not able to cannulate the common bile duct. At this time the procedure was terminated. Patient tolerated the procedure well. Impression: Normal-appearing pancreatic duct Unsuccessful cannulation of the common bile duct. Recommendations: The findings of this examination were discussed with the patient as well as a family. We'll refer the patient to a tertiary center at [facility] for repeat ERCP and biliary drainage.
[2020-06-23 15:23] VITALS: BP 104/76; PULSE 110
--- NOTE | 2020-06-23 16:43 | FL ---
EXAMINATION TYPE: FL ERCP DATE OF EXAM: 06/23/2020 FLUOROSCOPY Fluoroscopy time of 1 minute 6 seconds was used during attempted ERCP. 1 image/s document/s the proc edure.
== END 2020-06-23 16:00 | disposition home or self-care (01) ==
LOC: ORWHC2ENDO 11:05
PROVIDERS: ATTEND Internal Medicine Gastroenterology
DX: K83.1 Obstruction of bile duct (principal); C50.919 Malignant neoplasm of unspecified site of unspecified female breast; C79.9 Secondary malignant neoplasm of unspecified site; I10 Essential (primary) hypertension; I48.91 Unspecified atrial fibrillation; E07.9 Disorder of thyroid, unspecified; Z87.19 Personal history of other diseases of the digestive system; Z79.01 Long term (current) use of anticoagulants; Z91.040 Latex allergy status; Z79.899 Other long term (current) drug therapy; Z79.890 Hormone replacement therapy; Z90.10 Acquired absence of unspecified breast and nipple
CPT/HCPCS: 80048; 85027; 85610; 85730; 74329; 43260; J2250; J1956; J2001; J3010; J2704; Q9967; C1769; 74330

== ENCOUNTER → 2020-06-27 | Outpatient (CLI) | payer MEDICARE | END | disposition home or self-care (01) | LOC: LABWHC1 13:40 | PROVIDERS: ATTEND Internal Medicine Gastroenterology | DX: Z01.89 Encounter for other specified special examinations (principal) ==

== ENCOUNTER → 2020-07-18 | Outpatient (CLI) | payer MEDICARE ==
--- NOTE | 2020-07-18 16:58 | XR ---
EXAMINATION TYPE: XR KUB DATE OF EXAM: 07/18/2020 Comparison: Correlation PET/CT 04/28/2020 Clinical History: 75-year-old female abdominal pain, C50.111,D61.810,I89.0,R53.0 Findings: Left-sided ureteral stent is present. A plastic biliary stent is present. Mild to moderate scattered stool burden. Nonobstructive bowel gas pattern. Vascular calcifications in the pelvis. Sclerosis at t he sacral promontory compatible with known osseous metastatic disease. Impression: 1. Left-sided ureteral stent. Biliary stent also noted. 2. No evidence for free air or bowel obstruction. Mild to moderate stool burden. 3. Known osseous metastatic disease with sclerosis of the sacral promontory.
== END | disposition home or self-care (01) ==
LOC: RADXRMAIN 13:21
PROVIDERS: ATTEND Internal Medicine Hematology & Oncology
DX: C79.51 Secondary malignant neoplasm of bone (principal); C50.111 Malignant neoplasm of central portion of right female breast; I89.0 Lymphedema, not elsewhere classified; Z96.0 Presence of urogenital implants
CPT/HCPCS: 74018

== ENCOUNTER → 2020-07-20 | Outpatient (CLI) | payer MEDICARE ==
--- NOTE | 2020-07-20 14:28 | CT ---
EXAMINATION TYPE: CT ChestAbdPelvis w con DATE OF EXAM: 07/20/2020 COMPARISON: PET/CT 04/28/2020 HISTORY: 75-year-old female C50.111, Breast cancer. TECHNIQUE: Contiguous axial scanning of the chest, abdomen, and pelvis performed with IV Contrast, pa tient injected with 80 mL of Isovue M300. Delayed images through the kidneys were obtained. Coronal/s agittal reconstructions performed. CT DLP: 638.1 mGycm Automated exposure control for dose reduction was used. FINDINGS: CHEST: Heart mildly enlarged with trace pericardial fluid. Three-vessel coronary artery calcifications are p resent. Aorta normal caliber with mild atherosclerotic arch calcifications and bovine configuration to the ao rtic arch. Redemonstrated superior left breast mass currently measuring 2.7 cm versus 1.9 cm, previously. No progressive thoracic lymphadenopathy identified. Status post right mastectomy. Continued small to moderate bilateral pleural effusions. Some strandy basilar areas of atelectasis. R eticular subpleural changes anterior right lung likely relating to prior radiation therapy change. Areas of pleural thickening along the anterior lower lungs unchanged. ABDOMEN: Increasing mild abdominal ascites. Pneumobilia within the left hepatic lobe with a biliary stent placed in the interval. Portal venous s ystem appears patent. However, there are new multiple hypodense lesions within the liver, approximate ly 15, measuring up to 1.7 cm. Gallbladder is collapsed. Adrenal glands, spleen, and pancreas appear within normal limits. Bilateral extrarenal pelves. Stable 4.9 cm cyst upper pole right kidney 2.2 cm upper pole left kidney . Additional 2.7 cm cyst lateral left kidney. A left ureteral stent has been placed in the interval w ith improvement from previous hydronephrosis. Diffuse omental caking is redemonstrated. Some slightly irregular peritoneal enhancement and thickeni ng on the right flank. Again, increased mild abdominal ascites. No obvious lymphadenopathy. No dilated small bowel or free air. Scattered mild to moderate stool. Left-sided colonic diverticulos is without pericolonic inflammatory change. PELVIS: Bladder is distended. There is 4.8 x 1.8 cm soft tissue thickening along the left posterior bladder w all across which the patient's left ureteral stent traverses, possibly serosal disease. Uterus anteve rted. Both ovaries are visualized. Increased thickening of the peritoneal reflections in the pelvis n ow with mild to moderate pelvic ascites. BONES: Scattered small sclerotic foci in the left iliac bone are unchanged. Also within the proximal left fe mur and anterior right acetabulum. Numerous small sclerotic foci throughout the spine are unchanged. Abnormal sclerosis of S1, L1, T10, T6, and sternum are redemonstrated and noted to have been hypermet abolic on patient's PET/CT. IMPRESSION: 1. FINDINGS SUGGEST DISEASE PROGRESSION. THE SUPERIOR LEFT BREAST MASS IS LARGER AT 2.7 CM VERSUS 1.9 CM, PREVIOUSLY. CONTINUED SMALL TO MODERATE BILATERAL PLEURAL EFFUSIONS. 2. NUMEROUS NEW HYPODENSE HEPATIC LESIONS MEASURING UP TO 1.7 CM. 3. INCREASING MILD TO MODERATE ABDOMINOPELVIC ASCITES AND CONTINUED OMENTAL CAKING. PERITONEAL INVOLV EMENT WITHIN THE PELVIS SHOWS GREATER THICKENING OF THE PERITONEAL REFLECTIONS. 4. LEFT URETERAL STENT PLACED IN THE INTERVAL. THE DISTAL STENT TRAVERSES AN AREA OF 4.8 X 1.8 CM SOF T TISSUE THICKENING WHICH IS MORE PRONOUNCED NOW, LOCATED ALONG THE LEFT POSTERIOR BLADDER WALL. POSS IBLE SEROSAL INVOLVEMENT VERSUS BLADDER MASS. CLINICALLY CORRELATE. 5. KNOWN OSSEOUS METASTATIC DISEASE. HYPERMETABOLIC SCLEROTIC LESIONS SEEN ON PET/CT OF THE STERNUM, T6, T10, L1, AND S1 ARE ALL REDEMONSTRATED. IN ADDITION, THERE ARE NUMEROUS SMALLER SCLEROTIC FOCI TH ROUGHOUT THE BONY STRUCTURES WHICH ARE ALSO UNCHANGED BUT NOT CLEARLY SEEN TO BE HYPERMETABOLIC (MAY BE TOO SMALL FOR ADEQUATE PET CHARACTERIZATION). 6. INTERVAL PLACEMENT OF BILIARY STENT. SECONDARY PNEUMOBILIA NOTED.
== END | disposition home or self-care (01) ==
LOC: RADCTMAIN 09:51
PROVIDERS: ATTEND Internal Medicine Hematology & Oncology
DX: J90 Pleural effusion, not elsewhere classified (principal); K76.89 Other specified diseases of liver; R18.8 Other ascites; K66.8 Other specified disorders of peritoneum; M79.89 Other specified soft tissue disorders; C79.51 Secondary malignant neoplasm of bone; Z96.0 Presence of urogenital implants; Z96.89 Presence of other specified functional implants; C50.111 Malignant neoplasm of central portion of right female breast; Z92.21 Personal history of antineoplastic chemotherapy
CPT/HCPCS: 71260; 74177; Q9967 ×2

== ENCOUNTER → 2020-09-14 | Outpatient (CLI) | payer MEDICARE | END | disposition home or self-care (01) | LOC: LABWHC1 11:11 | PROVIDERS: ATTEND Internal Medicine | DX: Z20.822 Contact with and (suspected) exposure to COVID-19 (principal); C50.919 Malignant neoplasm of unspecified site of unspecified female breast | CPT/HCPCS: U0003; U0005 ==